=== PATIENT | male | born 1980 | race Hispanic/Latino ===

== ENCOUNTER 2017-09-05 08:25 | Inpatient (IN) | payer SELFPAY ==
[~2017-09-05] VITALS: Ht 157.5 cm; Wt 66.1 kg
[2017-09-05] VITALS (8 sets, daily range): BP systolic 95–111; BP diastolic 56–78
--- NOTE | 2017-09-05 08:25 | NUR ---
PT BROUGHT TO ER BY FRIEND. MAX ASSIST TO WC PT TO ROOM 12. MAX ASSIST TO STRETCHER. PT IS COLD BUT RESPONDS TO VERBAL STIMULI.
[2017-09-05 09:04] LABS: URINE BILIRUBIN - DIPSTICK NEGATIVE (NEGATIVE); URINE BLOOD DIPSTICK TRACE-INTACT (NEGATIVE); URINE COLOR YELLOW; URINE GLUCOSE - DIPSTICK >=1000 mg/dL (NEGATIVE); URINE KETONE >=80 mg/dL (NEGATIVE); URINE LEUK ESTERASE NEGATIVE (NEGATIVE); URINE NITRITE - DIPSTICK NEGATIVE (Negative); URINE PROTEIN - DIPSTICK 30 mg/dL (NEG-TRACE); URINE SPECIFIC GRAVITY >=1.030; URINE UROBILINOGEN - DIPSTICK 0.2 E.U./dL (0.2)
[2017-09-05 09:07] LABS: URINE CLARITY CLOUDY
[2017-09-05 09:09] LABS: URINE AMORPH SEDIMENT MANY hpf (NONE-FER); URINE EPITHELIAL CELLS FEW EPI/hpf (0-FEW); URINE RBC 0-2 RBC/hpf (0-5)
--- NOTE | 2017-09-05 09:30 | NUR ---
IV FLUIDS INFUSING PT STRAIT CATHED FOR URINE SPECIMEN W/STERILE TECHNIQUE. CLEAR YELLOW URINE RETURN.
--- NOTE | 2017-09-05 10:15 | NUR ---
PT VOIDED APPROX 600 ML CLEAR YELLOW URINE IN GRADUATE. ABLE TO DO WITHOUT ASSIST WHILE IN BED.
[2017-09-05 10:16] LABS: ALBUMIN 4.5 g/dL (3.2-5.0); ALKALINE PHOSPHATASE 155 u/l (38-126); BILIRUBIN, TOTAL 0.5 mg/dL (0.0-1.4); BUN 16 mg/dL (9-20); BUN/CREATININE RATIO 13 (12-20 (CALC)); CHLORIDE 95 mmol/l (95-108); CREATININE 1.3 mg/dL (0.7-1.3); GFR > 60 ML/MIN (>=60 (CALC)); GFR FOR AFR.AMER. > 60 ML/MIN (>=60 (CALC)); LIPASE 176 u/l (23-300); POTASSIUM 5.1 mmol/l (3.5-5.1); SGOT/AST 20 u/l (17-59); SGPT/ALT 33 u/l (21-72); SODIUM 136 mmol/l (137-146); TOTAL PROTEIN 7.6 g/dL (6.3-8.2)
[2017-09-05 10:26] LABS: CARBON DIOXIDE < 5 mmol/l (22-30)
[2017-09-05 10:38] LABS: HEMATOCRIT 56.3 % (39.0-50.0); HEMOGLOBIN 18.3 g/dl (14.0-18.0); IMMATURE GRANULOCYTES 0.8 % (0.0-1.0); MEAN CELL VOLUME 97.7 fL CALC (80.0-100.0); MEAN CORPUSCULAR HGB 31.8 pG CALC (26.0-32.0); MEAN CORPUSCULAR HGB CONC 32.5 g/L CALC (32.0-36.0); NEUT# 18.15 thou/uL (1.82-7.42); RED BLOOD COUNT 5.76 mill/uL (4.70-6.10); RED CELL DISTRI WIDTH 12.5 % (11.5-15.5)
--- NOTE | 2017-09-05 11:18 | NUR ---
PT VOIDED APPROX 600 ML CLEAR YELLOW URINE IN GRADUATE WITHOUT ASSIST.
--- NOTE | 2017-09-05 11:26 | NUR ---
ACCUCHECK [address] IV SITES HEALTHY. PT ADVISED OF CURRENT POC.
--- NOTE | 2017-09-05 11:29 | NUR ---
ADVISED OF 489 ACCUCHECK HOLD 10 UNITS OF IV INSULIN PER MD. START OF IV INSULIN DRIP. PT AT CT WILL START WHEN PT RETURNS TO ROOM 12.
--- NOTE | 2017-09-05 11:55 | NUR ---
PT VOICED 1000 ML CLEAR YELLOW URINE IN URINAL WITHOUT ASSIST
--- NOTE | 2017-09-05 12:21 | NUR ---
SBAR PRINTED TO FLOOR
--- NOTE | 2017-09-05 12:26 | NUR ---
PT VOIDED 700 ML OF URINE IN URINAL TEMP 98.6 RECTAL.
--- NOTE | 2017-09-05 13:14 | NUR ---
REPORT CALLED TO LIU CHAUDHARI ON ICU. PT TO ICU ON CARDIAC MONITORY. IV SITE HEALTHY. INSULIN DRIP CONTINUES.
--- NOTE | 2017-09-05 13:30 | NUR ---
PT ARRIVES TO ROOM 6, AROUSABLE, ORIENTED X 3. INSULIN DRIP IS AT 5 MG/HR, NS BOLUS NEARLY COMPLETE. LUNGS CLEAR, RA.
[2017-09-05 13:32] LABS: CHLORIDE 102 mmol/l (95-108); POTASSIUM 4.6 mmol/l (3.5-5.1); SODIUM 138 mmol/l (137-146)
[2017-09-05 13:34] LABS: CARBON DIOXIDE < 5 mmol/l (22-30)
[2017-09-05 18:07] LABS: POTASSIUM 3.7 mmol/l (3.5-5.1)
--- NOTE | 2017-09-05 20:00 | NUR ---
PT IN BED WITH EYES CLOSED, RESPIRATIONS EVEN AND UNLABORED ON RA, RESPONDS EASILY TO VERBAL COMMAND, A/O X3 IS DROWSY. INSULIN GTT AT 3U/HR, ACCUCHECK 214. URINAL AT BED SIDE. PO FLUIDS IN REACH. WILL CONTINUE TO MONITOR.
[2017-09-05 20:35] LABS: POTASSIUM 4.2 mmol/l (3.5-5.1)
[2017-09-06] VITALS (17 sets, daily range): BP systolic 81–113; BP diastolic 48–80
[2017-09-06 01:05] LABS: POTASSIUM 3.8 mmol/l (3.5-5.1)
--- NOTE | 2017-09-06 01:30 | NUR ---
SITTING ON SIDE OF BED USING URINAL, VOIDING 600ML CLEAR YELLOW URINE. ACCUCHECK 230 AT THIS TIME. D51/2NS INFUSING TO LAC AT 125CC/HR, INSULIN GTT INFUSING AT 3U/HR. BACK TO BED, CALL LIGHT IN REACH.
--- NOTE | 2017-09-06 02:35 | NUR ---
WAKES EASILY TO VERBAL COMMAND, VOICES NO CONCERNS. ACCUCHECK 235, INSULIN GTT INFUSING AT 3U/HR WITH D51/2NS AT 125CC/HR. CALL LIGHT IN REACH.
[2017-09-06 05:02] LABS: MEAN CORPUSCULAR HGB 31.1 pG CALC (26.0-32.0); MEAN CORPUSCULAR HGB CONC 34.7 g/L CALC (32.0-36.0); RED BLOOD COUNT 4.53 mill/uL (4.70-6.10); RED CELL DISTRI WIDTH 11.9 % (11.5-15.5)
[2017-09-06 05:05] LABS: HEMATOCRIT 40.6 % (39.0-50.0); HEMOGLOBIN 14.1 g/dl (14.0-18.0); MEAN CELL VOLUME 89.6 fL CALC (80.0-100.0)
[2017-09-06 05:12] LABS: ANION GAP 14 (6-22 (CALC)); BUN 8 mg/dL (9-20); BUN/CREATININE RATIO 16 (12-20 (CALC)); CARBON DIOXIDE 14 mmol/l (22-30); CHLORIDE 110 mmol/l (95-108); CREATININE 0.5 mg/dL (0.7-1.3); GFR > 60 ML/MIN (>=60 (CALC)); GFR FOR AFR.AMER. > 60 ML/MIN (>=60 (CALC)); MAGNESIUM 1.9 mg/dL (1.6-2.3); POTASSIUM 3.6 mmol/l (3.5-5.1); SODIUM 135 mmol/l (137-146)
--- NOTE | 2017-09-06 05:38 | NUR ---
RESTING WITH EYES CLOSED, RESPIRATIONS EVEN AND UNLABORED ON RA. ACCUCHECK 200. VOICES NO CONCERNS. CALL LIGHT IN REACH.
--- NOTE | 2017-09-06 07:20 | NUR ---
PT LAYING IN BED RESTING WITH EYES CLOSED, AROUSES EASILY TO VERBAL STIMULI, PT A & O X3, PERRL, HR 70, RESP. 20, BP 87/55, O2 100% ON RA, LUNG SOUNDS CLEAR IN ALL VALENTIN, 18G RAC IV SALINE LOCKED, 18G LAC IV WITH INSULIN DRIP AND IV FLUIDS INFUSING AT PRESCRIBED, NO REDNESS OR DRAINAGE AT SITE, WILL CONTINUE TO MONITOR BS CLOSELY, AM ASSESSMENT COMPLETE, SEE INTERVENTIONS, SAFETY MEASURES REINFORCED, CALL CERVANTES WITHIN REACH
--- NOTE | 2017-09-06 07:30 | NUR ---
INSULIN DRIP TITRATED OFF PER MD ORDER
--- NOTE | 2017-09-06 07:35 | NUR ---
SETUP ASSISTANCE PROVIDED WITH SAVANNA SHEA
--- NOTE | 2017-09-06 09:05 | NUR ---
DR LEYVA AT BEDSIDE DISCUSSING PLAN OF CARE
[2017-09-06 10:31] LABS: POTASSIUM 3.7 mmol/l (3.5-5.1)
--- NOTE | 2017-09-06 10:44 | NUR ---
PT LAYING IN BED RESTING WITH EYES CLOSED, AROUSES EASILY TO VERBAL STIMULI, REMINDED TO CALL FOR ASSISTANCE, CALL CERVANTSE WITHIN REACH
--- NOTE | 2017-09-06 11:30 | NUR ---
SETUP ASSISTANCE PROVIDED WITH LUNCH
--- NOTE | 2017-09-06 12:15 | NUR ---
PT SITTING UP IN THE BED WATCHING TV, VERBALIZES NO COMPLAINTS, REMINDED TO CALL FOR ASSISTANCE, CALL CERVANTES WITHIN REACH
[2017-09-06 14:18] LABS: POTASSIUM 3.8 mmol/l (3.5-5.1)
--- NOTE | 2017-09-06 15:28 | NUR ---
PT STANDING AT THE SIDE OF THE BED USING THE URINAL, T TOLERATING WELL, NO S/S OF DISTRESS, CALL CERVANTES WITHIN REACH
--- NOTE | 2017-09-06 16:30 | NUR ---
PT LAYING IN BED RESTING WITH EYES CLOSED, AROUSES EASILY TO VERBAL STIMULI, CALL CERVANTES WITHIN REACH
--- NOTE | 2017-09-06 17:30 | NUR ---
SETUP ASSISTANCE PROVIDED WITH PM MEAL
--- NOTE | 2017-09-06 19:49 | NUR ---
PT IN SEMIFOWLERS A/O X3, RESPIRATIONS EVEN AND UNLABORED ON RA. DENIES PAIN OR DISCOMFORT. TEACHING DONE REGARDING DIABETIS, DIET AND FOLLOWING UP WITH PCP AFTER DISCHARGE. VOICES UNDERSTANDING. BENGALI SPEAKER. CALL LIGHT IN REACH. WILL CONTINUE TO MONITOR.
--- NOTE | 2017-09-06 20:58 | NUR ---
ACCUCHECK 186, COVERED WITH 1UNIT OF NOVULOG INSULIN SQ, TOLERATED WELL. LEVEMIR 20UNITS SQ ALSO PROVIDED AT THIS TIME. VOICES NO CONCERNS.
[2017-09-06 23:12] LABS: POTASSIUM 3.3 mmol/l (3.5-5.1)
[2017-09-07] VITALS (10 sets, daily range): BP systolic 90–113; BP diastolic 53–74
--- NOTE | 2017-09-07 00:54 | NUR ---
RESTING WITH EYES CLOSED, RESPIRAITONS EVEN AND UNLABORED.
[2017-09-07 05:11] LABS: HEMOGLOBIN 14.2 g/dl (14.0-18.0); MEAN CELL VOLUME 89.9 fL CALC (80.0-100.0); MEAN CORPUSCULAR HGB 31.1 pG CALC (26.0-32.0); MEAN CORPUSCULAR HGB CONC 34.6 g/L CALC (32.0-36.0); RED BLOOD COUNT 4.56 mill/uL (4.70-6.10); RED CELL DISTRI WIDTH 12.1 % (11.5-15.5)
[2017-09-07 05:28] LABS: ANION GAP 17 (6-22 (CALC)); BUN 8 mg/dL (9-20); BUN/CREATININE RATIO 16 (12-20 (CALC)); CARBON DIOXIDE 16 mmol/l (22-30); CHLORIDE 109 mmol/l (95-108); CREATININE 0.5 mg/dL (0.7-1.3); GFR > 60 ML/MIN (>=60 (CALC)); GFR FOR AFR.AMER. > 60 ML/MIN (>=60 (CALC)); POTASSIUM 3.3 mmol/l (3.5-5.1); SODIUM 138 mmol/l (137-146)
--- NOTE | 2017-09-07 07:25 | NUR ---
PT ALERT RESTING IN BED, DENIES ANY COMPLAINTS, AM ASSESSMENT COMPLETED SEE INTERVENTIONS, SKIN INTACT WITH IV ACCESSES INTACE IN BILATERAL AC'S IV INFUSING PRESCRIBED AM ACCU CHECK 155, COVERAGE PROVIDED ORDERED, TELE READING SB-SR RATE 55-65, B/P TRENDS LOW PT ASYMPTOMATIC, OFFERS NO COMPLAINTS THIS AM, PT HAS FLAT AFFECT, DENIES PAIN OR DISCOMFORT AT THIS TIME, COMFROT MEASURES PROVIDED, REPOSITIONS SELF FOR COMFORT, SAFETY MEASURES REINFORCED, CALL CERVANTES WITHIN REACH, WILL CONTINUE TO MONITOR.
--- NOTE | 2017-09-07 07:45 | NUR ---
SET UP ASSIST FOR AM MEAL PROVIDED, PT DECLINES EATING AT THIS TIME, EDUCATED REGARDING IMPORTANCE OF DIET AND PROPER FOOD INTAKE WITH INSULIN ADMIN AT HOME, PT VERBALIZES UNDERSTANDING, ALL COMMUNICATION DONE WITH DUNCAN BOCANEGRA TRANSLATING, DISCUSSED PNEUMO VAC WITH PATIENT ORDERED, PT GIVES VERBAL CONSENT OT RECIEVE VACCINE, WILL OBTAIN WRITTEN CONSENT AND ADMINISTER ORDERED
--- NOTE | 2017-09-07 09:15 | NUR ---
IN TO SEE PATIENT, SPOKE WITH HIM REGARDING HOME MEDICATIONS AND NEED FOR INSULIN AT HOME AND FOLLOWING DIABETIC REGIMEN WITH REGARDS TO MEDS AND DIET. PT VERBALIZES UNDERSTANDING, AGAIN DUNCAN BOCANEGRA TRANSLATING
--- NOTE | 2017-09-07 10:00 | NUR ---
PT RESTING, POOR INTAKE AT AM MEAL, WILL CONTINUE TO MONITOR. CALL CERVANTES WITHIN REACH, SAFETY MEASURES REINFROCED, URINAL AT BEDSIDE, IVF CONTINUE AT PRESCRIBED RATE, CALL CERVANTES WITHIN REACH
--- NOTE | 2017-09-07 10:17 | NUR ---
PT COUNSLED REGARDING INSULIN ADMINSTRATION AT HOME, PT SELF ADMINSITERED 70/30 15 UNITS, (DRAWN UP BY NURSE) USING GOOD TECHNIQUE AND NO HESITATION TOLERATED WELL. PHARMACY STUDENTS TO INSTRUCT WITH REGARDS TO INSULIN PREPARATION, CALL CERVANTES WITHIN REACH, WILL CONTINUE TO MONITOR.
--- NOTE | 2017-09-07 10:45 | NUR ---
TEN PIN BOWLING CENTRE MANAGER AT BEDSIDE TEACHING PT ABOUT INSULING PREPARATION, RETURN DEMONSTRATION DONE W/O INCIDENT USING GOOD TECHNIQUE, CALL CERVANTES WITHIN REACH, WILL CONTINUE TO MONITOR,
--- NOTE | 2017-09-07 11:45 | NUR ---
Saw pt for insulin administration demonstration using sterile water, alcohol prep pad, and insulin needle. Pt expressed understanding and was able to demonstrate good technique. Educated pt on signs and symptoms of hypOglycemia and what to do with market research intern, latesha Ramirez. Pt verbally expressed understanding and had no further questions or concerns.
--- NOTE | 2017-09-07 12:26 | NUR ---
PT RESTING IN BED, TOLERATED 50% OF AFTERNOON MEAL, CURRENTLY READING EDUCATIONAL INFORMATION PROVIDED EARLIER ABOUT DM, INSULIN ADMINISTRATION, 70/30 INSULIN ADN DIET, SKIN AND FOOT CARE INFO, CALL CERVANTES WITHIN REACH.
--- NOTE | 2017-09-07 13:57 | NUR ---
PT RESTING INBED, OFFERS NO NEW COMPLAINTS, CALL CERVANTES WITHIN REACH, TELE REMAINS UNCHANGED AND VS STABLE
--- NOTE | 2017-09-07 15:36 | NUR ---
PT DOZES INTERMITTENLY, NO S/S OF IDSTRESS, VS STABLE AND NO TELE CHANGES NOTED, IVF CONTINUE, CALL CERVANTES WITHIN REACH.
--- NOTE | 2017-09-07 17:08 | NUR ---
PT SELF ADMINISTERED NOVOLOG COVERAGE INSULIN WITH PROPER TECHNIQUE, AWAITING PM MEAL, USES URINAL W/O INCIDENT, CALL CERVANTES WITHIN REACH
[2017-09-07] MEDS ORDERED: NOVOLIN 70/30 SC (17:33)
--- NOTE | 2017-09-07 18:15 | NUR ---
D/C INSTRUCTIONS DISCUSSED AT LENGTH, PT INSTRUCTED TO FOLLOW UP WITH HEALTH DEPT JERRY, AND TAKE ACCU CHECK INSTRUCTED AND KEEP FOOD AVAILABLE RELATED TO RISK OF HYPOGLYCEMIA, PT VERBALIZES UNDERSTANDING, PT DECLINES HAVING QUESTIONS, INSTRUCTED REGARDING THE IMPORTANCE OF FOLLOW UP, GETTING THE ACCU CHECK SUPPLIES AND INSULIN SUPPLIES TONIGHT, AGAIN PT VERBALIZES UNDERSTANDING,
--- NOTE | 2017-09-07 18:50 | NUR ---
D/C INSTRUCTION GIVEN TO PATIENT VIA MOTION PICTURE DIRECTOR ANDREA , ALL QUESTIONS ANSWERED, CALL INTO PT FRIEND MANDY (PER PT REQUEST) SOMEONE COMING TO GET THE PATIENT.
--- NOTE | 2017-09-07 19:35 | NUR ---
PT. WHEELED OUT OF ICU. DISCHARGED FROM HOSPITAL.
== END 2017-09-07 19:35 | disposition home or self-care (01) | DRG 639 ==
LOC: ED 08:25 → ED-I 10:35 → ED 10:35 → ED-I 12:10 → ED 12:20 → ICU 12:21 → EDBD 12:21 → ICU 09-07 19:35
PROVIDERS: Family Medicine; Nurse Practitioner Family; ADMIT Internal Medicine; ATTEND Internal Medicine
PROC: 3E0234Z Introduction of Serum, Toxoid and Vaccine into Muscle, Percutaneous Approach (ICD-10-PCS; principal; 2017-09-07)
DX: E11.10 Type 2 diabetes mellitus with ketoacidosis without coma (principal); Z23 Encounter for immunization; Z91.14 Patient's other noncompliance with medication regimen; Z79.84 Long term (current) use of oral hypoglycemic drugs
CPT/HCPCS: Q9967

== ENCOUNTER 2017-10-23 11:56 | Inpatient (IN) | payer SELFPAY ==
[2017-10-23] VITALS (7 sets, daily range): BP systolic 92–110; BP diastolic 55–65
[~2017-10-23] VITALS: Ht 157.5 cm; Wt 59.0 kg
[~2017-10-23 11:56] MED LIST: NOVOLIN 70/30 SC
[2017-10-23 12:59] LABS: ALBUMIN 5.1 g/dL (3.2-5.0); ALKALINE PHOSPHATASE 171 u/l (38-126); BILIRUBIN, TOTAL 0.6 mg/dL (0.0-1.4); BUN 17 mg/dL (9-20); BUN/CREATININE RATIO 17 (12-20 (CALC)); CHLORIDE 98 mmol/l (95-108); GFR > 60 ML/MIN (>=60 (CALC)); GFR FOR AFR.AMER. > 60 ML/MIN (>=60 (CALC)); SGOT/AST 19 u/l (17-59); SGPT/ALT 34 u/l (21-72); SODIUM 140 mmol/l (137-146)
[2017-10-23 13:08] LABS: ANION GAP 43 (6-22 (CALC)); CARBON DIOXIDE < 5 mmol/l (22-30); POTASSIUM 5.6 mmol/l (3.5-5.1); TOTAL PROTEIN 9.3 g/dL (6.3-8.2)
[2017-10-23 13:25] LABS: IMMATURE GRANULOCYTES 0.4 % (0.0-1.0); MEAN CORPUSCULAR HGB 31.4 pG CALC (26.0-32.0); MEAN CORPUSCULAR HGB CONC 31.5 g/L CALC (32.0-36.0); NEUT# 7.29 thou/uL (1.82-7.42); RED BLOOD COUNT 5.32 mill/uL (4.70-6.10); RED CELL DISTRI WIDTH 12.4 % (11.5-15.5)
[2017-10-23 13:26] LABS: HEMOGLOBIN 16.7 g/dl (14.0-18.0); MEAN CELL VOLUME 99.6 fL CALC (80.0-100.0)
[2017-10-23 13:27] LABS: INFLUENZA A NONE DETECTED (NONE DETECT); INFLUENZA B NONE DETECTED (NONE DETECT)
[2017-10-23 13:33] LABS: URINE BILIRUBIN - DIPSTICK NEGATIVE (NEGATIVE); URINE BLOOD DIPSTICK TRACE-INTACT (NEGATIVE); URINE COLOR YELLOW; URINE GLUCOSE - DIPSTICK >=1000 mg/dL (NEGATIVE); URINE KETONE >=80 mg/dL (NEGATIVE); URINE LEUK ESTERASE NEGATIVE (NEGATIVE); URINE NITRITE - DIPSTICK NEGATIVE (Negative); URINE PROTEIN - DIPSTICK 30 mg/dL (NEG-TRACE); URINE SPECIFIC GRAVITY 1.025; URINE UROBILINOGEN - DIPSTICK 0.2 E.U./dL (0.2)
[2017-10-23 13:34] LABS: URINE CLARITY CLEAR
[2017-10-23 13:43] LABS: URINE SQUAMOUS EPITHELIAL CELL FEW EPI/hpf (0-FEW)
[2017-10-23 20:30] LABS: ALBUMIN 3.8 g/dL (3.2-5.0); ALKALINE PHOSPHATASE 102 u/l (38-126); ANION GAP 25 (6-22 (CALC)); BILIRUBIN, TOTAL 0.7 mg/dL (0.0-1.4); BUN 14 mg/dL (9-20); BUN/CREATININE RATIO 22 (12-20 (CALC)); CARBON DIOXIDE 10 mmol/l (22-30); CHLORIDE 110 mmol/l (95-108); CREATININE 0.6 mg/dL (0.7-1.3); GFR > 60 ML/MIN (>=60 (CALC)); GFR FOR AFR.AMER. > 60 ML/MIN (>=60 (CALC)); POTASSIUM 4.4 mmol/l (3.5-5.1); SGOT/AST 11 u/l (17-59); SGPT/ALT 30 u/l (21-72); SODIUM 141 mmol/l (137-146); TOTAL PROTEIN 6.9 g/dL (6.3-8.2)
[2017-10-24] VITALS (17 sets, daily range): BP systolic 83–118; BP diastolic 49–71
[2017-10-24 00:47] LABS: POTASSIUM 4.2 mmol/l (3.5-5.1)
[2017-10-24 05:13] LABS: IMMATURE GRANULOCYTES 0.3 % (0.0-1.0); MEAN CELL VOLUME 95.3 fL CALC (80.0-100.0); MEAN CORPUSCULAR HGB 31.3 pG CALC (26.0-32.0); MEAN CORPUSCULAR HGB CONC 32.8 g/L CALC (32.0-36.0); NEUT# 5.27 thou/uL (1.82-7.42); RED BLOOD COUNT 4.28 mill/uL (4.70-6.10); RED CELL DISTRI WIDTH 12.6 % (11.5-15.5)
[2017-10-24 05:16] LABS: HEMATOCRIT 40.8 % (39.0-50.0); HEMOGLOBIN 13.4 g/dl (14.0-18.0)
[2017-10-24 05:21] LABS: ANION GAP 16 (6-22 (CALC)); BUN 13 mg/dL (9-20); BUN/CREATININE RATIO 24 (12-20 (CALC)); C-REACTIVE PROTEIN < 0.5 mg/dL (0-0.9); CARBON DIOXIDE 19 mmol/l (22-30); CHLORIDE 112 mmol/l (95-108); CREATININE 0.6 mg/dL (0.7-1.3); GFR > 60 ML/MIN (>=60 (CALC)); GFR FOR AFR.AMER. > 60 ML/MIN (>=60 (CALC)); SODIUM 143 mmol/l (137-146)
[2017-10-25] VITALS (9 sets, daily range): BP systolic 91–109; BP diastolic 46–66
[2017-10-25 05:28] LABS: HEMATOCRIT 37.9 % (39.0-50.0); HEMOGLOBIN 12.6 g/dl (14.0-18.0); MEAN CELL VOLUME 93.8 fL CALC (80.0-100.0); MEAN CORPUSCULAR HGB 31.2 pG CALC (26.0-32.0); MEAN CORPUSCULAR HGB CONC 33.2 g/L CALC (32.0-36.0); RED BLOOD COUNT 4.04 mill/uL (4.70-6.10); RED CELL DISTRI WIDTH 12.5 % (11.5-15.5)
[2017-10-25 05:53] LABS: ANION GAP 13 (6-22 (CALC)); BUN 12 mg/dL (9-20); BUN/CREATININE RATIO 28 (12-20 (CALC)); CARBON DIOXIDE 23 mmol/l (22-30); CHLORIDE 105 mmol/l (95-108); CREATININE 0.4 mg/dL (0.7-1.3); GFR > 60 ML/MIN (>=60 (CALC)); GFR FOR AFR.AMER. > 60 ML/MIN (>=60 (CALC)); MAGNESIUM 1.7 mg/dL (1.6-2.3); POTASSIUM 3.2 mmol/l (3.5-5.1); SODIUM 138 mmol/l (137-146)
[2017-10-25] MEDS ORDERED: NOVOLOG MIX SC (08:52)
== END 2017-10-25 14:24 | disposition home or self-care (01) | DRG 639 ==
LOC: ED 11:56 → ED-I 14:20 → ED 14:30 → ED-I 14:31 → ICU 14:31 → UNDODEPER 16:09 → ICU 18:48
PROVIDERS: Family Medicine; ADMIT Internal Medicine; ATTEND Internal Medicine
DX: E10.10 Type 1 diabetes mellitus with ketoacidosis without coma (principal); E86.0 Dehydration; Z79.4 Long term (current) use of insulin; Z91.14 Patient's other noncompliance with medication regimen
CPT/HCPCS: S0164